=== PATIENT | male | born 1965 | race Caucasian/White ===

== ENCOUNTER 2019-02-05 10:38 | Day surgery (SDC) | payer MEDICAID ==
[2019-02-05] MEDS ORDERED: Bupivacaine 0.5% 50 ML MDV ONE (10:48)
[2019-02-05] MEDS ORDERED: Lidocaine 2% 20 ML MDV ONE (10:48)
[2019-02-05] MEDS ORDERED: Lactated Ringers 1,000 ML IV SCH (11:15)
[2019-02-05] MEDS ORDERED: CEFAZOLIN IV ONE (11:30)
[2019-02-05] MEDS ORDERED: SODIUM CHLORIDE 0.9% IV ONE (11:30)
[2019-02-05] MEDS ORDERED: Nozin Nasal Sanitizer NASBOTH ONE (11:40)
[2019-02-05] MEDS ORDERED: fentaNYL 250 MCG/5 ML SDV ONE ×2 (11:50→12:08)
[2019-02-05] MEDS ORDERED: Glycopyrrolate 0.2 MG/ML 5 ML MDV ONE (11:50)
[2019-02-05] MEDS ORDERED: Succinylcholine 200 MG/10 ML MDV ONE (11:50)
[2019-02-05] MEDS ORDERED: Ondansetron 4 MG/2 ML SDV ONE (11:50)
[2019-02-05] MEDS ORDERED: Propofol 200 MG/20 ML SDV ONE (11:50)
[2019-02-05] MEDS ORDERED: Neostigmine Methylsulfate 1 MG/ML 5 ML Syringe ONE (11:50)
[2019-02-05] MEDS ORDERED: Dexamethasone 4 MG/ML SDV ONE (11:50)
[2019-02-05] MEDS ORDERED: Rocuronium 50 MG/5 ML Vial ONE (11:50)
--- NOTE | 2019-02-05 14:05 | OR ---
DATE OF PROCEDURE: 02/05/2019 SURGEON: Evangelist Ortiz DPM [facility] NURSE: None. PREOPERATIVE DIAGNOSIS: Lateral ankle ligament instability, right ankle. POSTOPERATIVE DIAGNOSIS: Lateral ankle ligament instability, right ankle. PROCEDURE: Modified Brostrom procedure right ankle with internal brace. ANESTHESIA: General. HEMOSTASIS: Obtained with a thigh tourniquet on the right thigh at 300 mmHg. ESTIMATED BLOOD LOSS: 5 mL. MATERIALS: Two Arthrex tendon anchors were used and 1 Arthrex internal brace was used. INJECTABLES: 20 mL of 1:1 mixture of lidocaine 2% plain, Marcaine 0.5% plain was injected at the end of the procedure. PATHOLOGY: None. CONDITION: Stable. INDICATIONS FOR SURGERY: Lateral ankle instability, right ankle. That was unresponsive to conservative measures. PROCEDURE IN DETAIL: The patient was brought to the operating room, placed on the operating table in supine position. Following general anesthesia, the right leg was scrubbed, prepped, and draped in the usual aseptic manner, raised to 60 degrees for hemostasis and exsanguinated using Esmarch bandage. Tourniquet was inflated. Foot was lowered to table. Skin incision was made on the lateral aspect of the right ankle just anterior to the lateral malleolus, incisions were deepened through subcutaneous tissues with care taken to identify and retract all vital neurovascular structures. With both sharp and blunt dissection, incision was made into the joint capsule, lateral side of the right ankle and the capsule was then carefully dissected distally on the lateral side of the talus in order to expose that so that we can get a proper site for the distal portion of the internal brace. We then drilled the talar hole for the internal brace and placed the talar portion of the internal brace into the talus and made a small incision on the lateral side of the joint capsule superficial to it so that we could pass the sutures through from the talar component of the internal brace and the sutures were passed through it. Then, we placed the fibular hole into the fibula and then the 2 smaller holes one on either side about 5 mm distal and 5 mm proximal to the fibular hole for the internal brace and the Brostrom procedure, pants-over- vest type procedure was completed using the sutures attached to the tendon anchors in order to secure the anterior talofibular ligament and repair it. Also the extensor retinaculum was sutured down to it as well in order to reinforce it. Having done this, then the fibular component of the internal brace was placed into the fibula over the anterior talofibular ligament in order to secure it. It was secured and we checked and made sure that the patient had approximately 15 degrees of inversion after the repair and placement of the brace. We then flushed the incision out with copious amounts of sterile saline. Subcutaneous closure was obtained with 3-0 Vicryl in a box stitch type configuration and skin closure was obtained with 3-0 nylon in horizontal mattress configuration. Postoperative injection was given and the leg was dressed with Xeroform, 4x4s, sterile cast padding, and a posterior splint. The patient was then returned to recovery room with vital signs stable and vascular status intact to both feet. The patient was given instructions to rest, ice, and elevate the right leg. Maintain strict nonweightbearing for 6 weeks and keep dressings clean, dry, and intact. Ambulate with crutches and/or knee scooter and to go to the emergency room immediately if he has any nausea, vomiting, fever, chills, chest pain, calf pain, or difficulty breathing. The patient to follow up with Podiatry in 1 week. Evangelist Ortiz DPM /[id number]
[2019-02-05 14:45] VITALS: BP 125/76; PULSE 61
== END 2019-02-05 14:40 | disposition home or self-care (01) ==
LOC: JP.SDS 10:38
PROVIDERS: ATTEND Podiatrist Foot & Ankle Surgery
DX: M25.371 Other instability, right ankle (principal); K21.9 Gastro-esophageal reflux disease without esophagitis; F17.210 Nicotine dependence, cigarettes, uncomplicated; E66.01 Morbid (severe) obesity due to excess calories; Z68.41 Body mass index [BMI] 40.0-44.9, adult; Z79.899 Other long term (current) drug therapy
CPT/HCPCS: 27698; 76000; A9270; J0330; J0690; J1100; J2001; J2405; J2704; J2710; J3010; J3490; J7050; J7120

== ENCOUNTER 2020-06-12 08:30 | Day surgery (SDC) | payer MEDICAID ==
[2020-06-12] MEDS ORDERED: Sodium Chloride 0.9% 10 ML Syringe FLUSH PRN (09:00)
[2020-06-12 09:39] VITALS: PULSE 75
[2020-06-12 09:40] VITALS: BP 140/90
--- NOTE | 2020-06-12 16:13 | OR ---
DATE OF PROCEDURE: 06/12/2020 SURGEON: Kim Garces MD POSTOPERATIVE CARE: Postoperative care will be provided mainly at the [address] [place] [address] [facility] in conjunction with [facility]. PREOPERATIVE DIAGNOSIS: Cataract, right eye. POSTOPERATIVE DIAGNOSIS: Cataract, right eye. PROCEDURE: Phacoemulsification with intraocular lens placement, right eye. ANESTHESIA: Topical and intracameral. ESTIMATED BLOOD LOSS: Minimal. COMPLICATIONS: None. PATHOLOGY SPECIMENS: None. SURGICAL FINDINGS: None. INDICATION FOR PROCEDURE: The patient is a 54-year-old male with history of a visually significant cataract in the right eye, which interfered with activities of daily living. This consisted of a nuclear sclerosis cataract. Following careful discussion of the risks, benefits and alternatives to cataract extraction with intraocular lens placement including blindness and , the patient elected to proceed, and informed, written consent was obtained prior to the procedure. DESCRIPTION OF THE PROCEDURE: The patient was previously identified, and a latanya placed above the right eye. All sources, including the patient, indicated that the right eye was the correct eye. The patient was subsequently taken to the operating room where standard monitors were applied. The patient was then prepped and draped in the usual sterile fashion for ophthalmic surgery. Attention was first directed at the 12 o'clock position where a paracentesis port was fashioned. Shugar solution followed by Viscoat was instilled into the eye. Attention was then directed to the 8:30 position where a triplanar incision was made in a near-clear manner using a keratome. A continuous capsulorrhexis was then made using a combination of the cystotome and Utrata forceps. Hydrodissection was achieved using a balanced salt solution, and the lens rotated nicely. Phacoemulsification was then done using a modified [id number] technique without complication. Phaco time was 4.77 CDE. The remaining cortex was removed using the irrigation/aspiration handpiece. Provisc was then instilled into the eye. A Technis lens, model PCB00, at 19.5 diopters was then placed in the capsular bag using an [place] injector. The remaining viscoelastic was removed using the irrigation/aspiration forceps. All wounds were then checked and found to be watertight. The lid speculum and drapes were removed. Maxitrol ointment was placed in the patient's right eye, and the eye was shielded. The patient tolerated the procedure well. The patient was instructed to follow up tomorrow. All needle and sponge counts were correct at the end of the procedure. Kim Garces MD /[id number]
== END 2020-06-12 09:40 | disposition home or self-care (01) ==
LOC: JP.SDS 08:30
PROVIDERS: ATTEND Ophthalmology
DX: H26.9 Unspecified cataract (principal); K21.9 Gastro-esophageal reflux disease without esophagitis
CPT/HCPCS: 66984; V2632

== ENCOUNTER 2021-08-20 08:10 | Day surgery (SDC) | payer MEDICAID ==
[~2021-08-20 08:10] MED LIST: Midazolam 1 MG/ML 2 ML SDV ONE; Propofol 200 MG/20 ML SDV ONE; fentaNYL 100 MCG/2 ML SDV ONE
[2021-08-20] MEDS: Lactated Ringers 1,000 ML IV SCH (08:36)
[2021-08-20 10:07] VITALS: BP 132/75; PULSE 75
== END 2021-08-20 10:35 | disposition home or self-care (01) ==
LOC: JP.SDS 08:10
PROVIDERS: ATTEND Family Medicine
DX: D12.5 Benign neoplasm of sigmoid colon (principal); K21.9 Gastro-esophageal reflux disease without esophagitis; E66.9 Obesity, unspecified; Z86.16 Personal history of COVID-19; Z68.43 Body mass index [BMI] 50.0-59.9, adult
CPT/HCPCS: 45380; 88305; J2250; J2704; J3010; J7120